=== PATIENT | male | born 1995 | race African-American/Black ===

== ENCOUNTER 2023-11-05 02:14 | Emergency (ER) | payer SELFPAY ==
[2023-11-05 02:36] VITALS: BP 142/86; O2SAT 100
[2023-11-05] MEDS ORDERED: oxyCODONE/ACET 5/325 Prepack 4 PO STA (02:47)
--- NOTE | 2023-11-05 03:25 | ED Physician Documentation ---
History of Present Illness - Stated complaint Stated Complaint: TOOTH PX - Chief complaint Chief Complaint: General - History obtained from History obtained from: Patient - Additonal information Additional information: 28yM with history of lower R dental avulsion p/w increased swelling and pain to the tooth tonight. denies fever. PD PAST MEDICAL HISTORY - Past Medical History Past Medical History: Yes Respiratory: Asthma - Past Surgical History Past Surgical History: No - Present Medications Home Medications: Ambulatory Orders Medication Instructions Recorded Confirmed Albuterol Sulfate [Proventil Hfa] 6.7 gm IH PRN PRN 11/05/23 11/05/23 Amox/Clav 875/125 [Augmentin 1 tablet PO Q12H 7 Days #14 tablet 11/05/23 875/125 Tab] - Allergies Allergies/Adverse Reactions: Allergies Allergy/AdvReac Type Severity Reaction Status Date / Time No Known Drug Allergies Allergy Verified 11/05/23 02:38 - Social History Does the pt smoke?: Yes Smoking Status: Current every day smoker Does the pt drink ETOH?: No PD ED PE NORMAL - Vitals Vital signs reviewed: Yes - General General: Alert and oriented X 3, No acute distress, Well developed/nourished - HEENT HEENT: Atraumatic, PERRL, EOMI, Other (poor dentition. R lower molar avulsion with surrounding periodontal swelling. ttp) Results - Vitals Vitals: Vital Signs - 24 hr 11/05/23 02:26 Heart Rate 80 Respiratory 17 Rate Blood Pressure 142/86 H O2 Saturation 100 Oxygen O2 Source Room air PD Medical Decision Making - ED course ED course: 28yM presents with dental abscess. pain medication provided in the ED and emergency dental referral was given. antibiotics sent to pharmacy. return precautions given. Departure - Departure Disposition: 01 Home, Self Care Clinical Impression: Dental infection Condition: Stable Instructions: ED Abscess Tooth Follow-Up: SALAZAR HODGES [Physician No Access] - Prescriptions: Amox/Clav 875/125 [Augmentin 875/125 Tab] 1 tablet PO Q12H 7 Days #14 tablet Comments: You were seen in the emergency department for dental pain. Electronic prescription for antibiotics was sent to [facility] in [place]. Please follow-up with emergency dental and return to the emergency department if you have any new or worsening symptoms or other concerns. Forms: PCP List, Activity restrictions
== END 2023-11-05 03:29 | disposition home or self-care (01) ==
LOC: ED 02:14
DX: K04.7 Periapical abscess without sinus (principal); F17.200 Nicotine dependence, unspecified, uncomplicated
CPT/HCPCS: 99282; 99283